=== PATIENT | male | born 1950 | race Hispanic/Latino ===

== ENCOUNTER 2021-01-10 22:07 | Observation (INO) | payer OTHER ==
[~2021-01-10] VITALS: Ht 177.8 cm; Wt 81.6 kg
[2021-01-10 22:49] LABS: BASOPHILS # (AUTO) 0.1 (0.0-0.1); BASOPHILS % 0.7 % (0.0-1.0); EOSINOPHILS # (AUTO) 0.1 (0.0-0.4); EOSINOPHILS % 1.5 % (0.0-6.0); HEMATOCRIT 41.5 % (38.2-49.6); HEMOGLOBIN 14.3 g/dL (14.0-18.0); LYMPHOCYTES # (AUTO) 0.6 (1.0-3.2); LYMPHOCYTES % 6.9 % (18.0-39.1); MEAN CORPUSCULAR HEMOGLOBIN 28.7 pg (28-32); MEAN CORPUSCULAR HGB CONC 34.5 g/dL (31-35); MEAN CORPUSCULAR VOLUME 83.2 fL (81-99); MONOCYTES # (AUTO) 0.7 (0.2-0.8); MONOCYTES % 8.4 % (4.4-11.3); NEUTROPHILS # (AUTO) 6.9 (2.1-6.9); NEUTROPHILS % 81.7 % (38.7-80.0); PLATELET COUNT 180 x10e3/uL (140-360); RED BLOOD COUNT 4.99 x10e6/uL (4.3-5.7); RED CELL DISTRIBUTION WIDTH 12.3 % (11.7-14.4)
[2021-01-10 22:58] LABS: INR 1.05; PROTHROMBIN TIME 13.9 seconds (11.9-14.5)
[2021-01-10 22:59] LABS: PARTIAL THROMBOPLASTIN TIME 27.7 seconds (23.8-35.5)
[2021-01-10 23:08] LABS: ALBUMIN 4.1 g/dL (3.5-5.0); ALBUMIN/GLOBULIN RATIO 1.1 (0.8-2.0); ANION GAP 16.5 mmol/L (8-16); CALCIUM 8.8 mg/dL (8.4-10.2); CREATININE, SERUM 1.1 mg/dL (0.72-1.25); POTASSIUM 3.5 mmol/L (3.5-5.1)
[2021-01-10 23:14] LABS: CREATINE KINASE MB 0.5 ng/mL (0-5.0)
[2021-01-10] MEDS ORDERED: METOPROLOL TARTRATE INJ 1 MG/ML VIAL IV ONE (23:15)
[2021-01-10] MEDS ORDERED: ACETAMINOPHEN 325 MG TAB PO ONE (23:30)
[2021-01-10] MEDS ORDERED: CASIRIVIMAB/IMDEVIMAB 10 ML in SODIUM CHLORIDE 0.9% 100 ML IV ONE (23:30)
[2021-01-10] MEDS ORDERED: ACETAMINOPHEN 325 MG TAB ONE (23:38)
[2021-01-11] VITALS (7 sets, daily range): BP systolic 119–158; BP diastolic 65–83
[2021-01-11] MEDS ORDERED: SODIUM CHLORIDE FLUSH 10 ML SYR INJ PRN
[2021-01-11] MEDS ORDERED: ACETAMINOPHEN 325 MG TAB PO PRN
[2021-01-11] MEDS: METOPROLOL SUCCINATE 25 MG TAB XL PO SCH ×2 (09:17)
[2021-01-11 09:49] LABS: CREATINE KINASE MB 0.4 ng/mL (0-5.0)
[2021-01-11] MEDS ORDERED: METOPROLOL SUCCINATE 25 MG TAB XL PO ONE (10:30)
[2021-01-11] MEDS ORDERED: APIXABAN 5 MG TABLET PO SCH (10:30)
[2021-01-11] MEDS ORDERED: METOPROLOL SUCC50 MG PO (11:11)
[2021-01-11] MEDS ORDERED: ELIQUIS5 MG PO (11:11)
[2021-01-11] MEDS ORDERED: VITAMIN D3250 MCG PO (11:12)
[2021-01-11] MEDS ORDERED: VITAMIN C500 M7 PO (11:16)
[2021-01-11] MEDS ORDERED: ZINC PO (11:17)
[2021-01-12] MEDS ORDERED: METOPROLOL SUCCINATE 50 MG TAB XL PO SCH (09:00)
== END 2021-01-11 14:34 | disposition home or self-care (01) ==
LOC: ER 22:33 → ERHOLD 01-11 00:24 → IMCU 01-11 00:46
DX: U07.1 COVID-19 (principal); I48.0 Paroxysmal atrial fibrillation; I49.1 Atrial premature depolarization; Z90.5 Acquired absence of kidney
CPT/HCPCS: 36415; 71045; 80053; 82550; 82553; 84484; 85025; 85610; 85730; 93005; 93306; 99251; 99285; G0378; J7050; U0002

== ENCOUNTER 2021-01-28 22:11 | Emergency (ER) | payer OTHER ==
[~2021-01-28] VITALS: Ht 177.8 cm; Wt 81.6 kg
[~2021-01-28 22:11] MED LIST: ELIQUIS5 MG PO; METOPROLOL SUCC50 MG PO; VITAMIN C500 M7 PO; VITAMIN D3250 MCG PO; ZINC PO
[2021-01-28] MEDS ORDERED: CLONIDINE HCL 0.2 MG TAB ONE (22:26)
[2021-01-28] MEDS ORDERED: HYDROCHLOROTHIA25 MG PO (22:34)
[2021-01-28 22:40] VITALS: BP 182/94
== END 2021-01-28 23:00 | disposition home or self-care (01) ==
LOC: ER 22:14
DX: I10 Essential (primary) hypertension (principal)
CPT/HCPCS: 99283

== ENCOUNTER 2021-01-29 12:27 | Emergency (ER) | payer OTHER ==
[~2021-01-29] VITALS: Ht 177.8 cm; Wt 81.6 kg
[~2021-01-29 12:27] MED LIST changes: +HYDROCHLOROTHIA25 MG PO
== END 2021-01-29 14:31 | disposition home or self-care (01) ==
LOC: ER 12:38
DX: I10 Essential (primary) hypertension (principal)
CPT/HCPCS: 93005; 99283

== ENCOUNTER 2021-06-04 14:45 | Observation (INO) | payer OTHER ==
[~2021-06-04] VITALS: Ht 177.8 cm; Wt 81.6 kg
[2021-06-04] MEDS ORDERED: SODIUM CHLORIDE 0.9% 1000ML 1,000 ML IV STA (15:00)
[2021-06-04] MEDS ORDERED: METOPROLOL TARTRATE INJ 1 MG/ML VIAL IV ONE (15:00)
[2021-06-04 15:30] LABS: BASOPHILS # (AUTO) 0.1 (0.0-0.1); BASOPHILS % 0.7 % (0.0-1.0); EOSINOPHILS # (AUTO) 0.3 (0.0-0.4); HEMATOCRIT 41.9 % (38.2-49.6); HEMOGLOBIN 14.5 g/dL (14.0-18.0); LYMPHOCYTES # (AUTO) 2.3 (1.0-3.2); LYMPHOCYTES % 25.1 % (18.0-39.1); MEAN CORPUSCULAR HEMOGLOBIN 29.5 pg (28-32); MEAN CORPUSCULAR HGB CONC 34.6 g/dL (31-35); MEAN CORPUSCULAR VOLUME 85.2 fL (81-99); MONOCYTES # (AUTO) 0.8 (0.2-0.8); MONOCYTES % 8.6 % (4.4-11.3); NEUTROPHILS # (AUTO) 5.7 (2.1-6.9); NEUTROPHILS % 62.3 % (38.7-80.0); PLATELET COUNT 223 x10e3/uL (140-360); RED BLOOD COUNT 4.92 x10e6/uL (4.3-5.7); RED CELL DISTRIBUTION WIDTH 12.4 % (11.7-14.4)
[2021-06-04 15:44] LABS: INR 1.05; PROTHROMBIN TIME 14.6 seconds (11.9-14.5)
[2021-06-04 15:54] LABS: ALBUMIN 3.9 g/dL (3.5-5.0); ANION GAP 9.2 mmol/L (8-16); CALCIUM 9.6 mg/dL (8.4-10.2); CREATININE, SERUM 1.17 mg/dL (0.72-1.25); POTASSIUM 3.2 mmol/L (3.5-5.1)
[2021-06-04 16:14] LABS: CREATINE KINASE MB 0.7 ng/mL (0-5.0); THYROID STIMULATING HORMONE 0.799 uIU/mL (0.350-4.940)
[2021-06-04 16:25] LABS: CLARITY,URINE SL CLOUDY (CLEAR); COLOR,URINE YELLOW (YELLOW); KETONES,URINE NEGATIVE (NEGATIVE); LEUKOCYTE ESTERASE ,URINE NEGATIVE (NEGATIVE); NITRITE,URINE NEGATIVE (NEGATIVE); PROTEIN,URINE DIPSTICK NEGATIVE (NEGATIVE); URINE UROBILINOGEN 0.2 mg/dL (0.2 - 1)
[2021-06-04] MEDS ORDERED: POTASSIUM CHLORIDE 20 MEQ TAB CR PO STA (16:27)
[2021-06-04 16:39] LABS: RBC,URINE 0-5 /HPF (0-5)
[2021-06-04] MEDS ORDERED: IOPAMIDOL 370 MG/ML 200 ML INFUS..BTL INJ ONE (17:00)
[2021-06-04] MEDS ORDERED: SODIUM CHLORIDE 0.9% 50ML 50 ML ONE (17:00)
[2021-06-04] MEDS ORDERED: METOPROLOL TARTRATE 25 MG TAB PO ONE (17:45)
[2021-06-04] MEDS: FAMOTIDINE 20 MG/2 ML VIAL IV SCH (18:00)
[2021-06-04] MEDS ORDERED: ONDANSETRON HCL INJ 2MG/ML 2ML 2 MG/ML VIAL IV PRN (18:00)
[2021-06-04 21:30] VITALS: BP 141/85
[2021-06-04 22:00] VITALS: BP 141/85
[2021-06-04] MEDS ORDERED: FLOMAX0.4 MG PO (22:11)
[2021-06-05] VITALS: BP 118/73
[2021-06-05 00:20] LABS: CREATINE KINASE MB 1.2 ng/mL (0-5.0)
[2021-06-05 04:00] VITALS: BP 117/67
[2021-06-05] MEDS: FAMOTIDINE 20 MG/2 ML VIAL IV SCH (05:45)
[2021-06-05 06:09] LABS: BASOPHILS # (AUTO) 0.1 (0.0-0.1); BASOPHILS % 0.7 % (0.0-1.0); EOSINOPHILS # (AUTO) 0.2 (0.0-0.4); EOSINOPHILS % 2.7 % (0.0-6.0); HEMATOCRIT 40.3 % (38.2-49.6); HEMOGLOBIN 13.7 g/dL (14.0-18.0); LYMPHOCYTES # (AUTO) 2.3 (1.0-3.2); LYMPHOCYTES % 27.3 % (18.0-39.1); MEAN CORPUSCULAR HEMOGLOBIN 29.5 pg (28-32); MEAN CORPUSCULAR VOLUME 86.7 fL (81-99); MONOCYTES # (AUTO) 0.7 (0.2-0.8); MONOCYTES % 8.7 % (4.4-11.3); NEUTROPHILS # (AUTO) 5.2 (2.1-6.9); NEUTROPHILS % 60.4 % (38.7-80.0); PLATELET COUNT 228 x10e3/uL (140-360); RED BLOOD COUNT 4.65 x10e6/uL (4.3-5.7); RED CELL DISTRIBUTION WIDTH 12.6 % (11.7-14.4)
[2021-06-05 06:43] LABS: ALBUMIN 3.6 g/dL (3.5-5.0); ALBUMIN/GLOBULIN RATIO 1.1 (0.8-2.0); ANION GAP 13.6 mmol/L (8-16); CALCIUM 9.2 mg/dL (8.4-10.2); POTASSIUM 3.6 mmol/L (3.5-5.1)
[2021-06-05] MEDS ORDERED: METOPROLOL TARTRATE 25 MG TAB PO SCH (07:00)
[2021-06-05 07:04] LABS: CHOL/HDL RATIO 4.1 (3.9-4.7)
[2021-06-05 07:15] LABS: CREATINE KINASE MB 1.1 ng/mL (0-5.0)
[2021-06-05 08:32] VITALS: BP 151/79
[2021-06-05 08:49] VITALS: BP 151/79
[2021-06-05] MEDS ORDERED: METOPROLOL SUCCINATE 50 MG TAB XL PO SCH ×2 (09:00→21:00)
[2021-06-05] MEDS ORDERED: ASPIRIN 81 MG ENTERIC COATED PO SCH (09:00)
[2021-06-05] MEDS ORDERED: APIXABAN 5 MG TABLET PO SCH (09:00)
[2021-06-05] MEDS ORDERED: METOPROLOL TARTRATE INJ 1 MG/ML VIAL IV PRN (10:00)
[2021-06-05] MEDS ORDERED: ONDANSETRON HCL 4 MG ORAL DISINTEGRATING TAB PO PRN (11:15)
[2021-06-05 12:24] LABS: CREATINE KINASE MB 1.1 ng/mL (0-5.0)
[2021-06-05] MEDS ORDERED: FAMOTIDINE 20 MG TAB PO SCH (16:30)
== END 2021-06-05 13:35 | disposition home or self-care (01) ==
LOC: ER 15:01 → INTOOBSV 18:03 → ERHOLD 18:03 → MED/SURG2 21:30
DX: I48.0 Paroxysmal atrial fibrillation (principal); I10 Essential (primary) hypertension; F41.9 Anxiety disorder, unspecified; Z20.822 Contact with and (suspected) exposure to COVID-19; N40.0 Benign prostatic hyperplasia without lower urinary tract symptoms; Z90.5 Acquired absence of kidney
CPT/HCPCS: 36415; 70450; 71260; 72125; 74177; 80053; 80061; 81001; 82550; 82553; 83735; 84443; 84484; 85025; 85610; 85730; 87086; 93005; 93306; 94799; 96376; 99284; G0378; J7030; Q9967; U0002